=== PATIENT | female | born 1955 ===

== ENCOUNTER 2020-01-28 00:12 | Day surgery (SDC) | payer MEDICARE | END 2020-01-28 22:42 | disposition home or self-care (01) | LOC: WOUND 00:12 | DX: Z53.9 Procedure and treatment not carried out, unspecified reason (principal) | CPT/HCPCS: G0463 ==

== ENCOUNTER → 2020-08-14 | Outpatient (CLI) | payer MEDICARE, OTHER | END | disposition home or self-care (01) | LOC: LAB SHORT 16:30 → PLD 16:30 | DX: N30.01 Acute cystitis with hematuria (principal) | CPT/HCPCS: 87077; 87086; 87186 ==